=== PATIENT | female | born 1955 | race African-American/Black ===

== ENCOUNTER 2019-12-12 11:51 | Emergency (ER) | payer OTHER ==
[~2019-12-12] VITALS: Ht 175.3 cm; Wt 95.9 kg
[2019-12-12 12:09] VITALS: Ht 175.3 cm; Wt 95.9 kg
[2019-12-12] MEDS ORDERED: MAXZIDE 75/501 TAB PO (12:11)
[2019-12-12] MEDS ORDERED: PROTONIX40 MG PO (12:11)
[2019-12-12] MEDS ORDERED: CARAFATE1 G PO (12:11)
[2019-12-12] MEDS ORDERED: ZOCOR40 MG PO (12:11)
[2019-12-12] MEDS ORDERED: GLYBURIDE2.5 MG PO (12:12)
[2019-12-12] MEDS ORDERED: GLUCOPHAGE500 MG PO (12:12)
[2019-12-12] MEDS ORDERED: NORVASC10 MG PO (12:12)
[2019-12-12] MEDS ORDERED: METOPROLOL TART50 MG PO (12:12)
[2019-12-12] MEDS ORDERED: XANAX0.5 MG PO ×2 (12:13)
[2019-12-12] MEDS ORDERED: ASPIRIN81 MG PO (12:13)
[2019-12-12] MEDS ORDERED: PROVENTIL/2.5 MG/3 M INH (12:14)
[2019-12-12] MEDS ORDERED: FLOVENT HFA 410.6 GM INH (12:14)
[2019-12-12 12:46] LABS: BASOPHILS 0.4 % (0-2); HEMATOCRIT 41.6 % (36.0-48.0); HEMOGLOBIN 13.7 g/dL (12-16); IMMATURE GRANULOCYTES 0.4 % (0-5); LYMPHOCYTES 31.9 % (15-50); MCH 29.5 pg (26.0-34.0); MCHC 32.9 g/dL (31.0-37.0); MCV 89.7 fL (80.0-100.0); MEAN PLATELET VOLUME 9.6 fL (7.4-10.4); MONOCYTES 13.4 % (2-11); NEUTROPHILS 52.9 % (40-80); PLATELET COUNT 325 10x3/uL (130-400); RBC 4.64 10x6/uL (4.00-5.40); RDW 13.7 % (11.5-14.5); WBC 4.8 10x3/uL (4.8-10.8)
[2019-12-12 12:59] LABS: CALC OSMOLALITY 274 mosm/kg (275-300); CALCIUM 9.8 mg/dL (8.5-10.1); CARBON DIOXIDE 29.3 mmol/L (21.0-32.0); CHLORIDE - SERUM 99 mmol/L (98-107); CREATININE - SERUM 1.6 mg/dL (0.6-1.3); GLUCOSE 93 mg/dL (74-106); POTASSIUM - SERUM 3.5 mmol/L (3.5-5.1); SODIUM 137 mmol/L (136-145); UREA NITROGEN 14 mg/dL (7-18); eGFR NON AFRICAN AMERICAN 34 mL/min (90-120)
[2019-12-12 13:15] LABS: ALBUMIN 3.7 g/dL (3.4-5.0); ALKALINE PHOSPHATASE 86 U/L (30-120); ALT (SGPT) 23 U/L (10-68); BILIRUBIN - TOTAL 0.36 mg/dL (0.2-1.3); CKMB 1.8 U/L (0.0-3.6); CREATINE KINASE 125 UL (21-215); PROTEIN - SERUM 8.3 g/dL (6.4-8.2); TROPONIN-I 0.019 ng/mL (0.000-0.060)
[2019-12-12 13:24] LABS: APTT 30.3 SECONDS (22.8-39.4); INR 0.93 (0.85-1.17); PROTIME 12.4 SECONDS (11.6-15.0)
[2019-12-12 15:45] LABS: CREATINE KINASE 114 UL (21-215)
[2019-12-12 15:52] LABS: TROPONIN-I 0.016 ng/mL (0.000-0.060)
[2019-12-12 16:51] VITALS: BP 140/81
== END 2019-12-12 16:58 | disposition home or self-care (01) ==
LOC: D.ER 11:51
PROVIDERS: Family Medicine
DX: R07.9 Chest pain, unspecified (principal); R10.13 Epigastric pain; K21.9 Gastro-esophageal reflux disease without esophagitis; K22.2 Esophageal obstruction; I10 Essential (primary) hypertension; E78.5 Hyperlipidemia, unspecified